=== PATIENT | male | born 1990 | race American Indian/Alaskan Native ===

== ENCOUNTER 2017-05-07 04:27 | Emergency (ER) | payer SELFPAY ==
--- NOTE | 2017-05-07 05:11 | Emergency Department Report ---
ED Alcohol HPI - General Stated Complaint: POSS ETOH Time Seen by Provider: 05/07/17 05:03 - History of Present Illness Initial Comments: Pt was brought by EMS for evaluation. Pt was found in his truck, parked by the road side. Pt was sleeping in it. The police were notified, he had his car impounded and pt was brought to ED for evaluation. Pt refuses to have any blood work done. I told pt that after my evaluation, he would discharge him to care of an adult for observation until he bethany off Complaint: alcohol intoxication Last Drink: just [employer] Chronic Alcohol Use: Yes Previous Visits for Alcohol Intoxication?: No Recent Trauma: No Associated Symptoms: denies other symptoms Treatments Prior to Arrival: none - Related Data Previous Rx's Medication Instructions Recorded Last Taken Type Ketoconazole 2% [Nizoral] 1 applicatio TP QDAY #1 tube 01/15/14 Unknown Rx Sulfamethoxazole/Trimethoprim 1 each PO BID #14 tablet 01/15/14 Unknown Rx [Bactrim Ds] Cyclobenzaprine [Flexeril] 10 mg PO TID PRN #30 tablet 07/02/16 Unknown Rx Ibuprofen [Motrin] 800 mg PO Q8HR PRN #30 tablet 07/02/16 Unknown Rx Allergies Allergy/AdvReac Type Severity Reaction Status Date / Time No Known Allergies Allergy Unverified 01/15/14 09:43 ED Review of Systems ROS: Stated complaint: POSS ETOH Other details as noted in HPI Comment: All other systems reviewed and negative Constitutional: no symptoms reported ED Past Medical Hx - Past Medical History Hx Hypertension: Yes - Social History Smoking Status: Current Every Day Smoker Substance Use Type: None - Medications Home Medications: Home Medications Medication Instructions Recorded Confirmed Last Taken Type Ketoconazole 2% [Nizoral] 1 applicatio TP QDAY #1 tube 01/15/14 Unknown Rx Sulfamethoxazole/Trimethoprim 1 each PO BID #14 tablet 01/15/14 Unknown Rx [Bactrim Ds] Cyclobenzaprine [Flexeril] 10 mg PO TID PRN #30 tablet 07/02/16 Unknown Rx Ibuprofen [Motrin] 800 mg PO Q8HR PRN #30 tablet 07/02/16 Unknown Rx ED Physical Exam - General General appearance: appears intoxicated, other (foul breatheof ETOH) - Head Head exam: Present: atraumatic, normocephalic, normal inspection - Eye Eye exam: Present: normal appearance, PERRL, EOMI - ENT ENT exam: Present: normal exam, normal orophraynx, mucous membranes moist - Neck Neck exam: Present: normal inspection, full ROM. Absent: tenderness, meningismus, lymphadenopathy, thyromegaly - Respiratory Respiratory exam: Present: normal lung sounds bilaterally. Absent: respiratory distress, wheezes, rales, rhonchi, chest wall tenderness, accessory muscle use, decreased breath sounds, prolonged expiratory - Cardiovascular Cardiovascular Exam: Present: regular rate, normal rhythm, normal heart sounds. Absent: bradycardia, systolic murmur, diastolic murmur - GI/Abdominal GI/Abdominal exam: Present: soft, normal bowel sounds. Absent: tenderness, guarding, rebound, hyperactive bowel sounds, hypoactive bowel sounds - Rectal Rectal exam: Present: deferred - Extremities Exam Extremities exam: Present: normal inspection, full ROM, normal capillary refill. Absent: pedal edema - Back Exam Back exam: Present: normal inspection, full ROM. Absent: CVA tenderness (R), CVA tenderness (L), muscle spasm - Neurological Exam Neurological exam: Present: oriented X3, CN II-XII intact ED Course - Reevaluation(s) Reevaluation #1: 05/07/17 05:20 Mom is present in ED, pt would be discharged to custody of mom Critical Care Time: No Critical care attestation.: If time is entered above; I have spent that time in minutes in the direct care of this critically ill patient, excluding procedure time. ED Disposition Clinical Impression: Alcohol abuse Disposition: DC-01 TO HOME OR SELFCARE Is pt being admited?: No Does the pt Need Aspirin: No Condition: Stable Instructions: Abuse of Alcohol (ED), Alcohol Intoxication (ED) Additional Instructions: For up with your aPCP in 2-3 days Referrals: PRIMARY CARE, [Primary Care Provider] - 3-5 Days Forms: AMA Form Time of Disposition: 05:22
[2017-05-07 05:30] VITALS: BP 134/80
== END 2017-05-07 05:45 | disposition home or self-care (01) ==
LOC: ED 04:27
DX: F10.10 Alcohol abuse, uncomplicated (principal); I10 Essential (primary) hypertension; F17.210 Nicotine dependence, cigarettes, uncomplicated
CPT/HCPCS: 99283

== ENCOUNTER 2018-06-04 03:54 | Emergency (ER) | payer SELFPAY ==
--- NOTE | 2018-06-04 04:42 | XRay Report ---
FINAL REPORT EXAM: XR SHOULDER 1V RT HISTORY: trauma; RT SHOULDER PAIN TECHNIQUE: A portable supine view of the right shoulder was obtained. FINDINGS: There is no evidence of fracture or soft tissue injury. The glenohumeral and AC joints appear intact. IMPRESSION: Within normal limits.
[2018-06-04 05:11] VITALS: BP 128/69
== END 2018-06-04 05:35 | disposition left against medical advice (07) ==
LOC: ED 03:54
DX: M25.511 Pain in right shoulder (principal); Z53.21 Procedure and treatment not carried out due to patient leaving prior to being seen by health care provider